=== PATIENT | female | born 1940 | race Caucasian/White ===

== ENCOUNTER 2017-02-19 05:04 | Emergency (ER) | payer OTHER ==
[~2017-02-19] VITALS: Ht 167.6 cm; Wt 89.1 kg
[~2017-02-19 05:04] MED LIST: MULT-506 PO
[2017-02-19 05:07] VITALS: BP 153/80; PULSE 89; TEMP 36.5; O2SAT 97; Ht 167.6 cm; Wt 89.1 kg
[2017-02-19] MEDS ORDERED: MULT1TAB19 PO (05:30)
[2017-02-19] MEDS ORDERED: CALC-388 PO (05:30)
[2017-02-19] MEDS ORDERED: DIPH25CA5 PO (05:30)
[2017-02-19] MEDS ORDERED: CLON0.5T3 PO (05:30)
--- NOTE | 2017-02-19 05:32 | EMERGENCY ROOM VISIT NOTE ---
History Report prepared by Rick: Montana Swartz Under the Supervision of: Dr. Bertha Mendez D.O. First contact with patient: 05:13 Chief Complaint: HIP PAIN Stated Complaint: HIP PAIN History of Present Illness The patient is a 76 year old female who presents to the Emergency Room with complaints of intermittent, improved right hip pain starting about a week ago. The patient has a history of bilateral hip replacements and right knee replacement. About a week ago, she started having a burning pain on the medial aspect of the right knee radiating to the right hip. She describes it as a burning, cramping pain. She has a history of similar pain occurring with strenuous activities. She had been cleaning the house about a week ago. This week she has not been engaging in any strenuous activities. She reports the right knee pain has resolved but she continues to have pain in the right hip. She currently describes the pain to be an aching pain which has improved since its initial onset. She has worsening pain with certain positions. She has a history of right hip dislocation occurring in 2009. She denies any chest pain, abdominal pain, or any other complaints. Source of History: patient Onset: about a week ago Position: other (right hip) Quality: ache Timing: intermittent, other (improved) Modifying Factors (Worsening): other (certain positions) Associated Symptoms: No abdominal pain, No chest pain Review of Systems See HPI for pertinent positives & negatives. A total of 10 systems reviewed and were otherwise negative. Past Medical & Surgical Medical Problems: (1) Bronchitis (2) Hip dislocation, right (3) Urinary problem Family History Asthma Social History Smoking Status: Never Smoker Alcohol Use: none Drug Use: none Marital Status: Housing Status: lives with significant other Occupation Status: retired Current/Historical Medications Scheduled Calcium Carbonate-Vitamin D (Calcium + D3 600-200 mg-Unit), 1 TAB PO DAILY Clonazepam (Klonopin), 0.25 MG PO BID Multiple Vitamins W/ Minerals (One Daily For Women 50+A), 1 TAB PO QAM Scheduled PRN Diphenhydramine Hcl (Benadryl), 25 MG PO DIRECTED PRN for CONGESTION Allergies Coded Allergies: Aspirin (Verified Allergy, Mild, COUGHING, 02/19/17) Physical Exam Vital Signs Date Time Temp Pulse Resp B/P Pulse Ox O2 Delivery O2 Flow Rate FiO2 02/19/17 05:07 36.5 89 16 153/80 97 Room Air Physical Exam HEENT: Head - normocephalic and atraumatic Pupils are equal, round, and reactive to light. Extraocular eye muscles are intact, and sclera are anicteric. Nose - moist nasal mucosa without discharge. Mouth - moist buccal mucosa. Oropharynx is nonerythematous and there is no tonsillar exudate or edema noted. Neck: Supple; no JVD, nuchal rigidity, cervical lymphadenopathy. Heart: Regular rate and rhythm. There is a normal S1 and S2 with no murmurs, clicks, or gallops appreciated. Lungs: Clear to auscultation bilaterally with no wheezes, rales, or rhonchi. Abdomen: Soft, completely nontender, nondistended, with good bowel sounds. There are no palpable pulsatile masses or hepatosplenomegaly. There is no guarding, rigidity, or rebound noted. Extremities: No evidence of cyanosis, clubbing, or edema. There are easily palpable peripheral pulses. Reproducible discomfort over the lateral aspect of the right hip. Skin: warm and dry with good turgor and no rashes. Medical Decision & Procedures ER Provider Diagnostic Interpretation: X-ray results as stated below per interpretation by me: RIGHT HIP X-RAY No obvious fracture, no loosening of hardware. ED Course 0513: Past medical records reviewed. The patient was evaluated in room A11B. A complete history and physical exam was performed. The patient went for plain x- rays of the right hip as described above. 0605: Upon reevaluation, the patient is resting comfortably. I discussed findings and results with her. She verbalized agreement of the treatment plan. She was discharged home. Medical Decision This is a 76 year old patient who presents to the Emergency Room with complaints of right hip pain. Differential diagnosis includes but is not limited to loosening of the hardware, malfunctioning prosthetic, right hip strain. Right hip x-ray shows the prosthetic to be in good position with no obvious loosening or fracture. I attest that I have personally reviewed the patient's current medication list. Patient was found to have an elevated blood pressure and was referred to their primary doctor for recheck and further treatment. I recommended that the patient close follow-up with Dr. Donaldson from orthopedics. Impression Primary Impression: Right hip pain Scribe Attestation The scribe's documentation has been prepared under my direction and personally reviewed by me in its entirety. I confirm that the note above accurately reflects all work, treatment, procedures, and medical decision making performed by me. Departure Information Dispostion Home / Self-Care Referrals No Doctor, Assigned (PCP) Forms HOME CARE DOCUMENTATION FORM, IMPORTANT VISIT INFORMATION, WORK / SCHOOL INSTRUCTIONS Patient Instructions My [facility] Additional Instructions REst. Limit any strenuous activity Follow up with Dr. Donaldson if persists
--- NOTE | 2017-02-19 08:50 | DIAGNOSTIC IMAGING REPORT ---
RIGHT HIP UNILATERAL 2 VIEWS CLINICAL HISTORY: right hip pain - eval prosthetic Right COMPARISON: None. DISCUSSION: Total right hip arthroplasty. Good contact between prosthetic and underlying bone. No evidence for acetabular protrusion. No abnormal lucencies. There is no evidence for soft tissue swelling. IMPRESSION: Anatomic alignment status post total right hip arthroplasty. Electronically signed by: Akbar Stringer M.D. 02/19/2017 8:48 AM Dictated Date/Time: 02/19/2017 8:47 AM
== END 2017-02-19 06:27 | disposition home or self-care (01) ==
LOC: C.EDB 05:05 → C.EDA 06:27
DX: M25.551 Pain in right hip (principal); R03.0 Elevated blood-pressure reading, without diagnosis of hypertension; Z96.643 Presence of artificial hip joint, bilateral; Z96.651 Presence of right artificial knee joint; Z82.5 Family history of asthma and other chronic lower respiratory diseases; Z79.899 Other long term (current) drug therapy

== ENCOUNTER 2019-04-25 09:49 | Inpatient (IN) ==
--- NOTE | 2019-04-14 11:35 | PAT Medication Instructions ---
Medication Instructions Date of Service April 14, 2019 Home Medications acetaminophen 1,000 mg PO Q6H PRN calcium carbonate-vitamin D3 [Calcium 600 + D(3)] 1 cap PO 2XWK clonazepam 0.125 mg PO BID menthol [Blue Gel] 1 applic TOPICAL BID PRN [Multi For Her] 1 tab-cap PO 5XWK vit C,U-Zx-kqdxj-lutein-zeaxan [PreserVision AREDS-2] 1 tab PO BID STOP taking 2 weeks before surgery (or as soon as possible if surgery is within 2 weeks) vit C,Y-Yf-ddqdr-lutein-zeaxan [PreserVision AREDS-2] 1 tab PO BID STOP taking 24 hours before surgery menthol [Blue Gel] 1 applic TOPICAL BID PRN DO NOT take the morning of surgery calcium carbonate-vitamin D3 [Calcium 600 + D(3)] 1 cap PO 2XWK [Multi For Her] 1 tab-cap PO 5XWK Take morning of surgery With a small sip of water, OTHERWISE NOTHING TO EAT OR DRINK AFTER MIDNIGHT: acetaminophen 1,000 mg PO Q6H PRN (okay to take up to 4 hours prior to surgery if needed) clonazepam 0.125 mg PO BID Take evening before surgery acetaminophen 1,000 mg PO Q6H PRN (if needed) clonazepam 0.125 mg PO BID Other Notes If you have any questions please call us at [phone] or [phone] or [phone] or [phone]
--- NOTE | 2019-04-15 18:17 | History and Physical Report ---
DATE OF ADMISSION: 04/25/2019 CHIEF COMPLAINT: Persistent left knee pain, discomfort and instability. HISTORY OF PRESENT ILLNESS: The patient is an 78-year-old female well known to me from a previous right knee replacement done in 2009. She had both of her hips replaced at [facility] even before that. She now presents for surgical treatment of her left knee. She had got a long history of increasing left knee pain and discomfort and instability. We have injected her knee, which really have not helped much at all. She continues to be limited by global pain in her knee. She uses a cane to get around. It feels unstable to her. She is concerned about falling and her knee giving out. The more she walks, the more it hurts. She elected to proceed with a left knee replacement. PAST MEDICAL HISTORY: Significant for: 1. Vertigo. 2. 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 3. Gastroesophageal reflux disease. 4. Skin cancer. PAST SURGICAL HISTORY: Previous surgeries include: 1. Right knee replacement done in 2009. 2. Bilateral hip replacement done at [facility]. 3. Bilateral mastectomies. ALLERGIES: None. CURRENT MEDICINES: Include: 1. Clonazepam 0.25 mg twice a day. 2. Multivitamin once a day. 3. Calcium with vitamin D. SOCIAL HISTORY: An 78-year-old female. She is . Does not smoke. No significant alcohol intake. REVIEW OF SYSTEMS: Negative for diabetes, neurologic problems, vascular problems or bleeding disorders. She does have a history of 1 DVT, but no known clotting disorder. Never had a PE. No chest pain or shortness of breath. PHYSICAL EXAMINATION: GENERAL: Reveals a pleasant elderly female. Looks to be in pretty good health. HEENT: Benign. NECK: Supple. No lymphadenopathy. LUNGS: Clear to auscultation. HEART: Regular rate and rhythm. ABDOMEN: Soft, nontender, nondistended. EXTREMITIES: Grossly neurovascularly intact except as follows. Examination of the left knee reveals the patient walks with a fairly unstable gait. When she weight bears, her knee goes into valgus appears to buckle. She uses the cane when she walks. She has got a small knee effusion. Range of motion is near full extension to 120 degrees of flexion. There is no gross instability. No pain with hip motion. X-RAYS: X-rays of the left knee reviewed. Shows advanced left knee lateral compartment DJD. She has complete loss of her lateral joint space. She has some cystic changes on her tibial plateau. Significant gapping at medial side with some MCL laxity. Diffuse osteopenia. ASSESSMENT: An 78-year-old female with history of bilateral hip replacements in the past as well as a right knee replacement with advanced left knee lateral compartment degenerative joint disease. She has also got significant instability, which is really affecting her quality of life and ability to get around. PLAN: We talked about treatment. She would like to proceed with left knee replacement. The risks and benefits of left total knee replacement were explained to the patient including but not limited to DVT, PE, , infection, neurological injury, vascular injury, bleeding problem, pain, limited range of motion, stiffness, failure to relieve symptoms, incomplete relief of symptoms, etc. The patient understands and desires to proceed. Informed consent was obtained. Due to this history of DVT in the past, we will likely use Xarelto for 1 month postoperatively if able. She is planning to be discharged to home with some home health and her 's assistance. KELSEA
--- NOTE | 2019-04-17 10:35 | Anesthesiology Consultation ---
Date of Service April 17, 2019 Assessment & Plan (1) Encounter for pre-operative examination: RUE limb restriction: s/p mastectomy Chart Review Chart Review: Acceptable Risk for Surgery and Patient NOT seen in Pre Admission Testing History Surgery Operation Date: 04/25/19 12:30 Proposed Procedures p Left Total Knee Arthroplasty - Royer Donaldson MD Height/Weight Height: 5 ft 6 in Weight: 87.7 kg Allergies Allergy/AdvReac Type Severity Reaction Status Date / Time aspirin AdvReac Mild COUGHING Verified 04/10/19 10:36 Medications Home Medications Medication Instructions Recorded Confirmed Last Taken acetaminophen 1,000 mg PO Q6H PRN 04/10/19 04/10/19 Unknown calcium carbonate-vitamin D3 1 cap PO 2XWK 04/10/19 04/10/19 Unknown [Calcium 600 + D(3)] clonazepam 0.125 mg PO BID 04/10/19 04/10/19 Unknown menthol [Blue Gel] 1 applic TOPICAL BID PRN 04/10/19 04/10/19 Unknown yidaipqvefyg-ppv-mhmy-FA-vit K 1 tab-cap PO 5XWK 04/10/19 04/10/19 Unknown [Multi For Her] vit C,P-Lt-wlwoy-lutein-zeaxan 1 tab PO BID 04/10/19 04/10/19 Unknown [PreserVision AREDS-2] Past Medical History Medical History HX: breast cancer s/p b/l mastectomy/chemo (RUE limb restriction) Hx of deep venous thrombosis RLE (post op) s/p hip replacement (? related to immobility) 25 years ago Meniere's disease Osteoarthritis Exercise / Class Metabolic Activity III < 4 Walking/Shop/Light housework (uses walker/cane PRN) Past Family History Family History Sister Family history of diabetes mellitus Past Surgical History Surgical History History of total left hip replacement History of total right hip replacement History of total right knee replacement Hx of bilateral mastectomy Hx of cholecystectomy Hx of total hysterectomy Past Anesthesia History No Hx of Anesthesia Complications (except PONV) Patient states that she [place]un[place] to obtain records)- attempt to realign in ER with ?sedation. Per patient's , he states they were never told this by a provider but he witnessed that a code was called on the patient and her "heart was restarted" after what appeared to be use of the defibrillator x3. No further details. They state providers at the ER did not mention any complications and patient was able to be discharged next day without issue and not told to followup with specialists upon discharge. Patient subsequently had mastectomy at [facility] without issue per patient (attempted/unable to obtain records). Per [facility] records, right TKA: 01/06/10: SAB + PNB at L3-L4. History of PONV History of PONV and Hx of Motion Sickness Social History Smoking Status: Never smoker Do You Dip or Chew Tobacco: No Hx Alcohol Use: No Hx Substance Use: No Review of Systems Patient denies chest pain, shortness of breath, cough, wheezing, palpitations. Physical Exam Vital Signs VITALS BP 120/78 P 71 TEMP 97.4 SP02 93%RA RESP 18 PHYSICAL Full neck and c-spine range of motion. Full TMJ range of motion. TMD 3 finger breaths Mallampati Score 2 Dentition: partial on upper, several caps/crowns Lungs: clear throughout to auscultation Cardiac: regular rate and rhythm, no murmurs noted Spine: normal Carotid arteries: negative bruit Extremities: no edema Testing Laboratory Results 04/17/19 10:43 04/17/19 10:43 PT 10.3 Seconds (9.0-12.0) 04/17/19 10:43 INR 1.0 (0.9-1.1) 04/17/19 10:43 APTT 26.4 Seconds (21.0-31.0) 04/17/19 10:43 Blood Type O Positive 04/17/19 10:43 Antibody Screen NEGATIVE 04/17/19 10:43 Electrocardiogram Date: 04/17/19 Findings: + NSR @ (69) Chest X-Ray Date: 04/17/19 Mediastinal and hilar silhouettes appear unchanged. Calcification the thoracic aorta. Unchanged mild biapical pleural-parenchymal scarring. Lungs are mildly hyperinflated. There is no pneumothorax, pleural effusion or overt pulmonary linear subsegmental atelectasis/scarring about the left lung base. Postoperative changes of the right chest wall. Degenerative changes of the shoulders and spine with mild sigmoidal scoliosis. No acute process.
[2019-04-17 11:03] LABS: Basophils # (auto) 0.04 K/uL (0-0.2); Basophils % (auto) 0.5 %; Eosinophils # (auto) 0.12 K/uL (0-0.5); Eosinophils % (auto) 1.6 %; Hematocrit (blood only) 45.2 % (37-47); Hemoglobin 15.2 g/dL (12.0-16.0); Immature Granulocytes # (auto) 0.01 K/uL (0.00-0.02); Immature Granulocytes % (auto) 0.1 %; Lymphocytes # (auto) 1.74 K/uL (1.2-3.4); Lymphocytes % (auto) 23.9 %; Mean Corpuscular Hgb Conc 33.6 g/dL (32-36); Mean Corpuscular Volume 94.8 fL (80-100); Mean Platelet Volume 11.4 fL (7.4-10.4); Monocytes % (auto) 9.6 %; Neutrophils # (auto) 4.67 K/uL (1.4-6.5); Neutrophils % (auto) 64.3 %; Platelet Count 189 K/uL (130-400); RDW Coefficient of Variation 13.5 % (11.5-14.5); RDW Standard Deviation 46.8 fL (36.4-46.3); Red Blood Count 4.77 M/uL (4.2-5.4); White Blood Count 7.28 K/uL (4.8-10.8)
--- NOTE | 2019-04-17 11:14 | XRay Report ---
XR chest Pre-admission PA/Lat HISTORY: 78 years-old Female pat preoperative exam. No acute chest complaints COMPARISON: Chest radiographs 11/27/2009 TECHNIQUE: PA and lateral views of the chest FINDINGS: Mediastinal and hilar silhouettes appear unchanged. Calcification the thoracic aorta. Unchanged mild biapical pleural-parenchymal scarring. Lungs are mildly hyperinflated. There is no pneumothorax, pleu ral effusion or overt pulmonary linear subsegmental atelectasis/scarring about the left lung base. Po stoperative changes of the right chest wall. Degenerative changes of the shoulders and spine with mil d sigmoidal scoliosis. IMPRESSION: No acute process. The above report was generated using voice recognition software. It may contain grammatical, syntax o r spelling errors. Electronically signed by: Rj Bonilla M.D. 04/17/2019 11:13 AM
[2019-04-17 11:15] LABS: Partial Thromboplastin Time 26.4 Seconds (21.0-31.0); Prothrombin Time 10.3 Seconds (9.0-12.0)
[2019-04-17 12:08] LABS: BUN Creatinine Ratio 15.5 (10-20); Blood Urea Nitrogen 14 mg/dl (7-18); C Reactive Protein < 0.29 mg/dl (0-0.29); Calcium 10.3 mg/dl (8.5-10.1); Carbon Dioxide 29 mmol/L (21-32); Chloride 109 mmol/L (98-107); Creatinine Clr Calc Pharmacy 53.8 ml/min; Est GFR (African American) 67.3; Glucose 87 mg/dl (70-99); Potassium 4.3 mmol/L (3.5-5.1); Sodium 142 mmol/L (136-145)
[~2019-04-25 09:49] MED LIST changes: +BUPIVACAINE 0.5 % 5 MG/1 ML PF 10ML VIAL ONE; +BUPIVACAINE/EPINEPHRINE 0.25% 1:200,000 30 ML VIAL ONE; +CEFAZOLIN 2000MG 2,000 MG/15 ML SYR IV SCH; +DEXAMETHASONE SOD INJ 4 MG/ML VIAL ONE; +LR 500ML BOLUS, THEN 15ML/HR IV SCH; +MIDAZOLAM HCL 1 MG/ML 2ML VIAL ONE; -MULT-506 PO; +fentaNYL citrate 100 MCG/2 ML VIAL ONE
--- NOTE | 2019-04-25 11:21 | History & Physical Bridge Note ---
Date of Service April 25, 2019 History & Physical Bridge Note I have examined the patient, reviewed the History & Physical and in the interval since the performance of the History & Physical I have noted the following changes of clinical significance: no changes noted
[2019-04-25] MEDS ORDERED: FAMOTIDINE 20 MG TAB PO SCH (11:30)
[2019-04-25] MEDS ORDERED: METOCLOPRAMIDE HCL 10 MG TABLET PO SCH (11:30)
[2019-04-25] MEDS ORDERED: ACETAMINOPHEN 500 MG TAB PO SCH (11:30)
[2019-04-25] MEDS ORDERED: ACETAMINOPHEN 500 MG TAB ONE (11:38)
[2019-04-25] MEDS ORDERED: FAMOTIDINE 20 MG TAB ONE (11:38)
[2019-04-25] MEDS ORDERED: METOCLOPRAMIDE HCL 10 MG TABLET ONE (11:38)
[2019-04-25] MEDS ORDERED: TRANEXAMIC ACID 1,000 MG in 0.9 % SODIUM CHLORIDE 100 ML IV SCH ×2 (11:45→21:46)
[2019-04-25] MEDS ORDERED: BUPIVACAINE LIPOSOME 1.3% 266 MG/20 ML VIAL ONE (11:59)
[2019-04-25] MEDS ORDERED: SODIUM CHLORIDE 0.9% PF 50 ML VIAL ONE (11:59)
[2019-04-25] MEDS ORDERED: EPINEPHrine INJ 1 MG/ML AMP ONE (11:59)
[2019-04-25] MEDS ORDERED: BUPIVACAINE 0.25% 30 ML VIAL ONE (11:59)
[2019-04-25] MEDS ORDERED: BACITRACIN INJ 50,000 UNIT VIAL ONE (11:59)
[2019-04-25] MEDS ORDERED: ePHEDrine sulfate 50 MG/ML AMP IV PRN (12:07)
[2019-04-25] MEDS ORDERED: fentaNYL citrate 100 MCG/2 ML VIAL IV PRN (12:07)
[2019-04-25] MEDS ORDERED: ONDANSETRON INJ 2 MG/ML 2 ML VIAL IV PRN ×2 (12:07→16:46)
[2019-04-25] MEDS ORDERED: ATROPINE SULFATE 0.1 MG/ML 10ML SYR IV PRN (12:07)
[2019-04-25] MEDS ORDERED: LIDOCAINE HCL 2% 2 ML VIAL/AMP(20MG/ML) INFIL ONE (14:24)
[2019-04-25] MEDS ORDERED: PROPOFOL IV EMULSION 10 MG/ML 20 ML VIAL IV ONE (14:24)
[2019-04-25] MEDS ORDERED: ONDANSETRON INJ 2 MG/ML 2 ML VIAL ONE (14:24)
--- NOTE | 2019-04-25 15:45 | Post Operative Brief Note ---
Immediate Post Op Note v1 Date of Surgery April 25, 2019 Pre & Post Diagnosis Operation Date: 04/25/19 12:30 Pre-Op Diagnosis: Left Knee Degenerative Joint Disease Post-Op Diagnosis: Left Knee Degenerative Joint Disease Procedure Operation Date: 04/25/19 12:30 Actual Procedures p Left Total Knee Arthroplasty(Left) - Royer Donaldson MD Surgeon Royer Donaldson MD Warehouse Handler Reic, PAC Estimated Blood Loss 50 Findings Consistent with Post-Op Diagnosis Fluids 1500 cc Specimens Left Knee Drains Garcia Catheter Anesthesia Type Spinal MAC Complications none Disposition Accompanied Patient To Recovery: Yes Disposition: Recovery Room
--- NOTE | 2019-04-25 16:17 | XRay Report ---
XR knee LT 2V routine CLINICAL HISTORY: Surgical Post Op COMPARISON: 01/06/2010 DISCUSSION: Anatomic alignment posttotal left knee arthroplasty. Could contact between prosthetic in an Bone. Expected postoperative soft tissue changes IMPRESSION: Anatomic alignment posttotal left knee arthroplasty. The above report was generated using voice recognition software. It may contain grammatical, syntax or spelling errors. Electronically signed by: Akbar Stringer M.D. 04/25/2019 4:16 PM
--- NOTE | 2019-04-25 16:26 | Anesthesiology Progress Note ---
Date of Service April 25, 2019 Anesthesia Post Procedure Vital Signs Vital Signs: Temp Pulse Pulse Resp BP Pulse Ox 04/25/19 16:15 36.6 C 67 21 136/79 93 04/25/19 16:05 71 16 124/74 94 04/25/19 15:55 83 22 121/72 95 04/25/19 15:48 36.2 C L 82 21 128/76 94 04/25/19 10:14 36.5 C 89 20 163/79 H 94 Pain Intensity Left Knee: Pain Intensity: 0 Transfer of Care Handoff Completed per policy Notes Mental Status: alert / awake / arousable Patient Amnestic to Procedure: Yes Nausea / Vomiting: adequately controlled Pain: adequately controlled Airway Patency, RR, SpO2: stable & adequate BP & HR: stable & adequate Hydration State: stable & adequate Neuraxial Anesthesia: was administered and sensory block is resolving Anesthetic Complications: no major complications apparent
[2019-04-25] MEDS ORDERED: NALOXONE HCL 0.4 MG/1 ML VIAL/CARP IV PRN (16:46)
[2019-04-25] MEDS ORDERED: MAGNESIUM HYDROXIDE SUSP 30 ML UDC PO PRN (16:46)
[2019-04-25] MEDS ORDERED: METOCLOPRAMIDE HCL INJ 5 MG/ML 2 ML VIAL IV PRN (16:46)
[2019-04-25] MEDS ORDERED: BISACODYL 10 MG SUPP PR PRN (16:46)
[2019-04-25] MEDS ORDERED: TAMSULOSIN HCL 0.4 MG CAP PO PRN (16:46)
[2019-04-25] MEDS ORDERED: HYDROmorphone INJ 0.5 MG/0.5 ML SYR IV PRN (16:46)
[2019-04-25] MEDS ORDERED: NON-FORMULARY MEDICATION (Multivitamin-Min-Iron-Fa-Vit K [Multi For Her] 1 TABCAP) PO SCH (16:46)
[2019-04-25] MEDS ORDERED: ALUMINUM/MAGNESIUM SUSP 30 ML UDC PO PRN (16:46)
[2019-04-25] MEDS ORDERED: SODIUM CHLORIDE 0.9% 1000ML 1,000 ML IV SCH (17:45)
[2019-04-25] MEDS: ASCORBIC ACID 500 MG TAB PO SCH (18:27)
[2019-04-25] MEDS: FERROUS GLUCONATE 324 MG TAB PO SCH (18:27)
[2019-04-25] MEDS: TRAMADOL HCL 50 MG TABLET PO PRN (18:27)
[2019-04-25] MEDS: KETOROLAC TROMETHAMINE 15 MG/ML VIAL IV SCH ×2 (18:28→23:41)
[2019-04-25] MEDS: CEROVITE ADV FORMULA TAB PO SCH (21:10)
[2019-04-25] MEDS: SENNA 8.6 MG TAB PO SCH (21:10)
[2019-04-25] MEDS: DOCUSATE SODIUM 100 MG CAP PO SCH (21:10)
[2019-04-25] MEDS: ACETAMINOPHEN 500 MG TAB PO SCH (21:10)
[2019-04-25] MEDS: clonazePAM 0.5 MG TAB PO SCH (21:13)
[2019-04-25] MEDS: CEFAZOLIN 2000MG 2,000 MG/15 ML SYR IV SCH (21:13)
--- NOTE | 2019-04-26 03:39 | Operative Report ---
DATE OF OPERATION: 04/25/2019 DATE OF SURGERY: 04/25/2019 SURGEON: Royer Donaldson MD RETAIL LEASING AGENT: Constantin Curry PA-C PREOPERATIVE DIAGNOSIS: Left knee degenerative joint disease. POSTOPERATIVE DIAGNOSIS: Left knee degenerative joint disease. PROCEDURE PERFORMED: Left cemented posterior stabilized total knee arthroplasty. COMPLICATIONS: None. ESTIMATED BLOOD LOSS: 50 mL. FLUID REPLACEMENT: 1500 mL crystalloid fluid replacement. TOURNIQUET TIME: 56 minutes at 300 mmHg. ANESTHESIA: Spinal with adductor canal block. DRAINS: None. SPECIMENS: Left knee sent for pathology. OPERATIVE INDICATIONS: The patient is an 78-year-old very active, healthy female with a history of bilateral hip replacements as well as a right knee replacement in the past. Over the past year, she developed increased pain, discomfort and marked instability in her left knee and progressive valgus deformity. She had failed conservative care and she was concerned about her knee giving out as she has had she is close to fall several times. X-rays revealed advanced lateral compartment DJD. She elected to proceed with total knee arthroplasty. OPERATIVE FINDINGS: Operative findings revealed a valgus aligned knee. She had grade 4 [id number] disease of the lateral femoral condyle and lateral tibial plateau. She did have a significant wear of the lateral side of the medial femoral condyle as well due to her deformity. She had a moderate to large knee joint effusion. Diffuse osteopenia. OPERATIVE IMPLANTS: Operative implants consisted of: 1. Biomet Vanguard size 65 left posterior stabilized femoral component. 2. A Biomet size 71 tibial tray. 3. A 12 mm posterior stabilized polyethylene insert. 4. A 31 x 8 all poly patella. OPERATIVE PROCEDURE: The patient was taken to the operating room, identified and placed on the operating table in supine position. All contact areas were appropriately padded. IV antibiotics were provided by anesthesia team. Spinal anesthetic and adductor canal block had been provided in the holding area. Garcia catheter was placed in sterile fashion. Left thigh tourniquet was then placed. Left lower extremity was then prepped and draped in usual sterile fashion. Left leg was elevated and exsanguinated with an Esmarch and tourniquet was placed at 300 mmHg. An anterior approach to the left knee was then performed through a longitudinal incision centered over the patella. Sharp dissection was carried through subcutaneous tissue down to the level of the extensor mechanism. A medial parapatellar arthrotomy incision was made. Some subperiosteal dissection was carried out medially. The fat pad was resected from beneath the patellar tendon. The patellofemoral ligament was released. The patella was everted and knee was flexed. The osteophytes were taken off the distal femur. The ACL and PCL were then released from the distal femur and the tibia subluxated anteriorly. External tibial alignment jig was then placed in the anterior face of the tibia and adjusted 12 mm medially. Proximal tibial cut was made to remove about 4 mm of bone from the medial side. The tibia was then sized to a size 71. We tried to maximize coverage due to osteopenia. Attention was then drawn to the femur. The distal femur was entered with a sharp drill bit. Intramedullary canal was suctioned. A left 5-degree valgus cutting guide was placed. Distal femoral cutting block was pinned in place. Distal femoral cut was made to take an additional 3 mm of bone off distal femur. The knee was then brought out into extension. I did release some of the IT band very carefully and some of the posterolateral capsule in order to equalize the extension gap. Great care was taken to protect the peroneal nerve. Once this was equalized, the knee was flexed. The femur was then sized to a size 65. The AP cutting block was pinned parallel to the epicondylar axis, which was 6 degrees of external rotation. The anterior cut, anterior chamfer cut, posterior cut, posterior chamfer cuts were made. Box cutting guide was placed and adjusted slightly lateral and the box cut was made. The knee was flexed. The remnants of medial and lateral menisci were excised. The osteophytes were taken off the posterior aspect of the femur. A trial femoral component was placed. The tibial tray was pinned in maximum external rotation and drill and stem punch were used to create defect in proximal tibia for the tibial tray. The knee was then trialed and the 12 mm insert fit most appropriately. Attention was then drawn to patella. The patella was cleaned of all soft tissues. Patella thickness measured about 19 mm in thickness, was cut down to 13. It was sized to a size 31 patella. Lug holes were drilled for 31 patella. Lateral osteophyte was removed. Patella button was placed. Knee was taken through range of motion, patella tracked nicely with no thumbs test. Attention was then drawn toward placement of permanent components. All trial components were removed. Bone plug was placed in the distal femur to limit blood loss. A double batch of Palacos G cement was mixed. A Biomet Vanguard size 65 left posterior stabilized femoral component, size 71 tibial tray, 12 mm posterior stabilized polyethylene insert, and a 31 x 8 all poly patella then cemented in place. Knee was brought into full extension until cement hardened. A final cement check was then performed. Pericapsular tissues were injected with a total of 100 mL of combination of 20 mL of Exparel, 30 mL of normal saline, 50 mL of 0.25% Marcaine with epinephrine. The patient did receive 1 gram of tranexamic acid. The tourniquet was then let down for a tourniquet time of 56 minutes. Hemostasis was assured with use of electrocautery. The extensor mechanism was then closed with combination of #1 PDS suture and #1 Vicryl suture in a [id number] fashion. Extensor mechanism was checked and found to be intact. The subcutaneous tissue was then closed with #2 Dexon suture in a buried interrupted fashion. Skin was closed with skin franchesca. Leg was then cleaned, dried and a sterile dressing of Xeroform, 4 x 4, sterile cast padding and Juan Jose bandage were applied. The patient then transferred to the recovery room in stable condition. The patient tolerated the procedure well with no complication. All needle and sponge counts were correct at the end of the operation. I attest to the content of the Intraoperative Record and any orders documented therein. Any exception s are noted below.
[2019-04-26] MEDS: ACETAMINOPHEN 500 MG TAB PO SCH ×3 (06:00→21:06)
[2019-04-26] MEDS: CEFAZOLIN 2000MG 2,000 MG/15 ML SYR IV SCH (06:01)
[2019-04-26] MEDS: KETOROLAC TROMETHAMINE 15 MG/ML VIAL IV SCH ×3 (06:01→17:57)
[2019-04-26 06:38] LABS: Hematocrit (blood only) 39.8 % (37-47); Hemoglobin 13.3 g/dL (12.0-16.0); Mean Corpuscular Hgb Conc 33.4 g/dL (32-36); Mean Corpuscular Volume 94.8 fL (80-100); Mean Platelet Volume 11.1 fL (7.4-10.4); Platelet Count 188 K/uL (130-400); RDW Coefficient of Variation 13.2 % (11.5-14.5); RDW Standard Deviation 45.8 fL (36.4-46.3); White Blood Count 10.74 K/uL (4.8-10.8)
[2019-04-26 07:06] LABS: BUN Creatinine Ratio 13.7 (10-20); Calcium 9.8 mg/dl (8.5-10.1); Creatinine Clr Calc Pharmacy 40.8 ml/min; Est GFR (African American) 48.5; Est GFR (Non-African American) 41.8; Potassium 4.5 mmol/L (3.5-5.1)
[2019-04-26] MEDS ORDERED: MULTIVITAMIN TAB PO SCH (09:00)
[2019-04-26] MEDS: FERROUS GLUCONATE 324 MG TAB PO SCH ×2 (09:02→17:56)
[2019-04-26] MEDS: ASCORBIC ACID 500 MG TAB PO SCH ×2 (09:02→17:56)
[2019-04-26] MEDS: DOCUSATE SODIUM 100 MG CAP PO SCH ×2 (09:03→21:06)
[2019-04-26] MEDS: TRAMADOL HCL 50 MG TABLET PO PRN ×3 (09:08→21:05)
[2019-04-26] MEDS: clonazePAM 0.5 MG TAB PO SCH ×2 (09:08→21:05)
[2019-04-26] MEDS: RIVAROXABAN 10 MG TABLET PO SCH (17:56)
--- NOTE | 2019-04-26 18:18 | Progress Note ---
DATE: 04/26/2019 SUBJECTIVE: An 78-year-old female postop day 1 from left knee replacement. She is doing pretty well. Complained mostly just of some thigh discomfort. Nothing real painful. No chest pain or shortness of breath. Not feeling dizzy or lightheaded. OBJECTIVE: VITAL SIGNS: Temperature 36.4. Vital signs stable. PHYSICAL EXAMINATION: GENERAL: Shows a pleasant elderly female. She is lying in bed, looks pretty comfortable. LUNGS: Clear to auscultation. HEART: Has regular rate and rhythm. ABDOMEN: Soft, nontender, nondistended. EXTREMITIES: Grossly neurovascularly intact except as follows: Examination of the left lower extremity reveals the leg to be well aligned. Dressing is clean, dry and intact. She can dorsiflex and plantarflex her foot appropriately. She is neurologically intact. LABORATORY DATA: Hemoglobin is 13.3. Hematocrit 39.8. Electrolytes are stable. Creatinine just slightly elevated at 1.22. ASSESSMENT: An 78-year-old female postop day 1 from left knee replacement, doing pretty well. Her pain is controlled. She is neurologically intact. PLAN: 1. DVT prophylaxis including thigh-high TEDs, SCDs, and aspirin twice a day. 2. PT/OT. She will weightbear as tolerated. Left total knee protocol. 3. Pain control. Doing reasonably well with current pain regimen. We are going to stop her Toradol due to her slightly elevated creatinine. 4. Disposition: She is hoping to be discharged home with some home health. We will see how therapy goes in the next 24 hours. She does have her to assist in her care.
[2019-04-26] MEDS: CEROVITE ADV FORMULA TAB PO SCH (21:06)
[2019-04-26] MEDS: SENNA 8.6 MG TAB PO SCH (21:06)
[2019-04-27] MEDS: KETOROLAC TROMETHAMINE 15 MG/ML VIAL IV SCH ×3 (00:05→12:56)
[2019-04-27] MEDS: ACETAMINOPHEN 500 MG TAB PO SCH ×2 (06:01→12:57)
[2019-04-27] MEDS: RIVAROXABAN 10 MG TABLET PO SCH (08:21)
[2019-04-27] MEDS: DOCUSATE SODIUM 100 MG CAP PO SCH (08:21)
[2019-04-27] MEDS: FERROUS GLUCONATE 324 MG TAB PO SCH (08:21)
[2019-04-27] MEDS: TRAMADOL HCL 50 MG TABLET PO PRN (08:22)
[2019-04-27] MEDS: ASCORBIC ACID 500 MG TAB PO SCH (08:22)
[2019-04-27] MEDS: clonazePAM 0.5 MG TAB PO SCH (08:26)
--- NOTE | 2019-04-27 09:39 | Progress Note ---
DATE: 04/27/2019 SUBJECTIVE: An 78-year-old female postop day 2 from left knee replacement. She is doing pretty well. Pain is controlled. Just a little thigh ache more than anything. No chest pain or shortness of breath. Not feeling dizzy or lightheaded. OBJECTIVE: VITAL SIGNS: Temperature 36.4. Vital signs stable. GENERAL: Physical examination shows a pleasant elderly female. She is sitting up in her bedside chair, looks comfortable. EXTREMITIES: Examination of the left leg reveals the dressing to be in place. Just a trace bit of bloody drainage. Her calf is soft and supple. She is neurologically intact. Leg is well aligned. ASSESSMENT: An 78-year-old female postop day 2 from left knee replacement, doing well. Her pain is controlled. She is neurologically intact. PLAN: 1. DVT prophylaxis including thigh-high TEDs, SCDs, and Xarelto. We will use Xarelto due to her history of DVT years ago with a hip replacement. No known clotting disorder. 2. PT/OT. Weight bear as tolerated. Left total knee protocol. 3. Pain control, doing well with current pain regimen. 4. Disposition: Plan to discharge to home with some home health later today.
[2019-04-28] MEDS ORDERED: CALCIUM 600MG + VIT D 400 IU TAB PO SCH (09:00)
--- NOTE | 2019-05-06 18:55 | Discharge Summary ---
ADMITTING PHYSICIAN AND SURGEON: Dr. Royer Donaldson. ADMITTING DIAGNOSIS: Left knee degenerative joint disease. SURGERY PERFORMED: Left total knee arthroplasty. SECONDARY DIAGNOSIS: None. CONSULTS: None obtained. History and physical examination were well documented within the patient's chart. HOSPITAL COURSE: The patient was at [facility] on 04/25/2019 and underwent a left total knee arthroplasty. She tolerated the procedure well. There were no complications. She was transferred to PACU postoperatively and later to the orthopedic floor for further care. She was given Ancef as an antibiotic prophylaxis, YADI stockings, SCDs, and Xarelto for DVT prophylaxis. Hemoglobin and hematocrit and vital signs were monitored during the hospital stay and remained stable. She did not require any blood transfusions. There were no complications. By postoperative day #2, she was tolerating a regular diet. Pain was well controlled with oral pain medication as well. She was participating in physical therapy. On postop day 2, she was discharged to home. She was set up with home health services. She was given printed discharge instructions as well as new prescriptions for extra strength Tylenol, tramadol, and Xarelto. She can continue with physical therapy, weightbearing as tolerated. Follow up in approximately 2 weeks postoperatively or sooner if there are any problems or concerns. She is to maintain a total left knee protocol.
== END 2019-04-27 14:28 | disposition home health service (06) | DRG 470 ==
LOC: ASU 09:49 → 3E 15:54